=== PATIENT | female | born 1960 | race Hispanic/Latino ===

== ENCOUNTER 2016-06-20 16:03 | Emergency (ER) | payer BC ==
[~2016-06-20] VITALS: Ht 152.4 cm; Wt 70.0 kg
[~2016-06-20 16:03] MED LIST: NO MEDS
[2016-06-20] MEDS ORDERED: METFORMIN500 MG PO (16:23)
[2016-06-20] MEDS ORDERED: ACCUPRIL5 MG PO (16:24)
[2016-06-20] MEDS ORDERED: GLIPIZIDE5 MG PO (16:24)
[2016-06-20 16:53] LABS: INFLUENZA A NONE DETECTED (NONE DETECT); INFLUENZA B NONE DETECTED (NONE DETECT)
[2016-06-20 18:06] LABS: HEMATOCRIT 37.2 % (37.0-47.0); HEMOGLOBIN 13.2 g/dl (12.0-16.0); IMMATURE GRANULOCYTES 0.3 % (0.0-1.0); MEAN CELL VOLUME 87.9 fL CALC (80.0-100.0); MEAN CORPUSCULAR HGB 31.2 pG CALC (26.0-32.0); MEAN CORPUSCULAR HGB CONC 35.5 g/L CALC (32.0-36.0); NEUT# 8.57 thou/uL (2.00-7.15); RED BLOOD COUNT 4.23 mill/uL (4.20-5.60); RED CELL DISTRI WIDTH 11.3 % (11.5-15.5)
[2016-06-20 18:11] LABS: ALBUMIN 3.9 g/dL (3.2-5.0); ALKALINE PHOSPHATASE 158 u/l (38-126); ANION GAP 18 (6-22 (CALC)); BILIRUBIN, TOTAL 0.5 mg/dL (0.0-1.4); BUN 12 mg/dL (7-17); BUN/CREATININE RATIO 24 (12-20 (CALC)); CALCIUM 9.8 mg/dL (8.4-10.2); CARBON DIOXIDE 26 mmol/l (22-30); CHLORIDE 98 mmol/l (95-108); CREATININE 0.5 mg/dL (0.5-1.0); GFR > 60 ML/MIN (>=60 (CALC)); GFR FOR AFR.AMER. > 60 ML/MIN (>=60 (CALC)); GLUCOSE 259 mg/dL (65-105); LIPASE 108 u/l (23-300); POTASSIUM 4.4 mmol/l (3.5-5.1); SGOT/AST 21 u/l (14-36); SGPT/ALT 36 u/l (9-52); SODIUM 137 mmol/l (137-146); TOTAL PROTEIN 7.9 g/dL (6.3-8.2)
[2016-06-20 18:23] LABS: MYOGLOBIN 32 ng/mL (0 - 62)
[2016-06-21 01:29] LABS: URINE BILIRUBIN - DIPSTICK NEGATIVE (NEGATIVE); URINE BLOOD DIPSTICK SMALL (NEGATIVE); URINE CLARITY TURBID; URINE COLOR YELLOW; URINE GLUCOSE - DIPSTICK 100 mg/dL (NEGATIVE); URINE KETONE NEGATIVE (NEGATIVE); URINE PROTEIN - DIPSTICK TRACE mg/dL (NEG-TRACE); URINE SPECIFIC GRAVITY <=1.005; URINE UROBILINOGEN - DIPSTICK 0.2 E.U./dL (0.2)
[2016-06-21 01:34] LABS: URINE LEUK ESTERASE SMALL (NEGATIVE); URINE NITRITE - DIPSTICK POSITIVE (Negative)
[2016-06-21 01:42] LABS: URINE BACTERIA MANY hpf; URINE SQUAMOUS EPITHELIAL CELL FEW EPI/hpf (0-FEW)
[2016-06-21] MEDS ORDERED: LEVAQUIN500 MG PO (02:18)
[2016-06-21 02:28] VITALS: BP 121/74
== END 2016-06-21 02:29 | disposition home or self-care (01) | DRG 690 ==
LOC: ED 16:03 → ED-I 06-21 00:24 → ED 06-21 02:29
PROVIDERS: Emergency Medicine
DX: N39.0 Urinary tract infection, site not specified (principal); I27.2 Other secondary pulmonary hypertension; R10.13 Epigastric pain; R05 Cough; R11.2 Nausea with vomiting, unspecified; R50.9 Fever, unspecified; R94.31 Abnormal electrocardiogram [ECG] [EKG]
CPT/HCPCS: Q9967

== ENCOUNTER 2020-04-01 14:33 | Emergency (ER) | payer BC ==
[~2020-04-01] VITALS: Ht 152.4 cm; Wt 75.0 kg
[~2020-04-01 14:33] MED LIST changes: +ACCUPRIL5 MG PO; +GLIPIZIDE5 MG PO; +LEVAQUIN500 MG PO; +METFORMIN500 MG PO
[2020-04-01] MEDS ORDERED: NOVOLOG MIX100 U/ML SC (15:33)
[2020-04-01] MEDS ORDERED: LOSARTAN POTASS50 MG PO (15:33)
[2020-04-01] MEDS ORDERED: MONTELUKAST SOD10 MG PO (15:34)
[2020-04-01] MEDS ORDERED: KLOR-CON M1010 MEQ PO (15:35)
[2020-04-01] MEDS ORDERED: ASPIRIN ADULT L81 MG PO (15:35)
[2020-04-01] MEDS ORDERED: FUROSEMIDE20 MG PO (15:36)
[2020-04-01 16:08] LABS: HEMATOCRIT 35.9 % (37.0-47.0); HEMOGLOBIN 11.5 g/dl (12.0-16.0); IMMATURE GRANULOCYTES 0.3 % (0.0-5.0); MEAN CELL VOLUME 91.3 fL CALC (80.0-100.0); MEAN CORPUSCULAR HGB 29.3 pG CALC (26.0-32.0); NEUT# 9.34 thou/uL (2.00-7.15); RED BLOOD COUNT 3.93 mill/uL (4.20-5.60); RED CELL DISTRI WIDTH 13.8 % (11.5-15.5)
[2020-04-01 16:23] LABS: ALKALINE PHOSPHATASE 130 u/l (38-126); ANION GAP 9 (6-22 (CALC)); BILIRUBIN, TOTAL 0.3 mg/dL (0.0-1.4); BUN 58 mg/dL (7-17); BUN/CREATININE RATIO 58 (12-20 (CALC)); CARBON DIOXIDE 37 mmol/l (22-30); CHLORIDE 95 mmol/l (95-108); GFR 57 ML/MIN (>=60 (CALC)); GFR FOR AFR.AMER. > 60 ML/MIN (>=60 (CALC)); POTASSIUM 4.7 mmol/l (3.5-5.1); SGOT/AST 27 u/l (14-36); SODIUM 136 mmol/l (137-146); TOTAL PROTEIN 7.8 g/dL (6.3-8.2)
[2020-04-01 17:47] VITALS: BP 141/67
== END 2020-04-01 17:47 | DRG 563 ==
LOC: ED 14:33
PROVIDERS: Emergency Medicine
PROC: 2W3QX1Z Immobilization of Right Lower Leg using Splint (ICD-10-PCS; principal; 2020-04-01)
DX: S82.851A Displaced trimalleolar fracture of right lower leg, initial encounter for closed fracture (principal); M25.562 Pain in left knee; M25.462 Effusion, left knee; E11.9 Type 2 diabetes mellitus without complications; I10 Essential (primary) hypertension; X50.0XXA Overexertion from strenuous movement or load, initial encounter; Y93.89 Activity, other specified; Z79.4 Long term (current) use of insulin